=== PATIENT | female | born 1995 | race Two or more races ===

== ENCOUNTER 2022-01-09 19:15 | Emergency (ER) | payer OTHER ==
[~2022-01-09] VITALS: Ht 170.2 cm; Wt 111.1 kg
== END 2022-01-09 21:54 | disposition home or self-care (01) ==
LOC: ER 19:15
DX: I10 Essential (primary) hypertension (principal); R53.81 Other malaise

== ENCOUNTER 2022-08-05 08:11 | Emergency (ER) | payer OTHER ==
[~2022-08-05] VITALS: Ht 167.6 cm; Wt 104.3 kg
[2022-08-05] MEDS ORDERED: PAXLOVID 300-11 EACH PO (11:41)
[2022-08-05] MEDS ORDERED: TUSSIN DM SYRU118 ML PO (11:41)
== END 2022-08-05 12:35 | disposition home or self-care (01) ==
LOC: ER 08:11
DX: U07.1 COVID-19 (principal)